=== PATIENT | male | born 1980 | race Caucasian/White ===

== ENCOUNTER 2017-05-18 07:27 | Day surgery (SDC) | payer MEDICAID ==
[~2017-05-18] VITALS: Ht 188 cm; Wt 139.2 kg
[2017-05-18] VITALS (7 sets, daily range): BP systolic 129–168; BP diastolic 85–118
[~2017-05-18 07:27] MED LIST: CLA10T PO; DEXL60CA3 PO; HYDR1TAB PO; METH4TAB3 PO; PRED10TA PO; QUET-1 PO; ROSU20TA PO
[2017-05-18] MEDS ORDERED: normal saline 1000ml 1,000 ML IV PRN (08:00)
[2017-05-18 08:47] LABS: BASOPHILS % (AUTO) 0.5 % (0-1); EOSINOPHILS # (AUTO) 0.2 X10'3 (0-0.9); EOSINOPHILS % (AUTO) 2.7 % (0-6); HEMATOCRIT 43.5 % (42.0-52.0); HEMOGLOBIN 15.4 g/dl (14.0-17.9); LYMPHOCYTES # (AUTO) 1.3 X10'3 (1.1-4.8); LYMPHOCYTES % (AUTO) 21.7 % (21-51); MEAN CORPUSCULAR HEMOGLOBIN 31.6 PG (27.0-31.0); MEAN CORPUSCULAR HGB CONC 35.5 % (33.0-36.5); MEAN CORPUSCULAR VOLUME 89.3 FL (78-98); MEAN PLATELET VOLUME 9.4 FL (7.4-10.4); MONOCYTES # (AUTO) 0.4 X10'3 (0-0.9); NEUTROPHILS # (AUTO) 4.1 X10'3 (1.8-7.7); NEUTROPHILS % (AUTO) 68.1 % (42-75); PLATELET COUNT 239 X10'3 (140-440); RED BLOOD COUNT 4.87 X10'6 (4.70-6.10); RED CELL DISTRIBUTION WIDTH 12.6 % (11.5-14.5)
[2017-05-18] MEDS ORDERED: HYDR12.5 PO (08:47)
[2017-05-18] MEDS ORDERED: OMEP20TA23 PO (08:47)
[2017-05-18] MEDS ORDERED: NABU500T2 PO (08:47)
[2017-05-18] MEDS ORDERED: ATOR40TA PO (08:47)
[2017-05-18] MEDS ORDERED: LISI-600 PO (08:47)
[2017-05-18] MEDS ORDERED: KETO10DR3 EACHEYE (08:47)
[2017-05-18] MEDS ORDERED: HYDR-565 PO (08:47)
[2017-05-18] MEDS ORDERED: LIDOcaine 1%/PF (10mg/ml) 5ml vial ONE (09:03)
[2017-05-18] MEDS ORDERED: heparin sodium, porcine/PF 100unit/ml 5ML syringe ONE (09:04)
[2017-05-18] MEDS ORDERED: midazolam 2 mg/2 ml injection ONE ×3 (10:00→10:39)
[2017-05-18] MEDS ORDERED: fentaNYL/PF 50MCG/1 ML 2ML syringe ONE ×3 (10:01→10:39)
[2017-05-18] MEDS ORDERED: midazolam 2 mg/2 ml injection IV PRN (10:05)
[2017-05-18] MEDS ORDERED: fentaNYL/PF 50MCG/1 ML 2ML syringe IV PRN (10:05)
[2017-05-18] MEDS ORDERED: LIDOcaine 1%/PF (10mg/ml) 5ml vial SQ ONE (10:05)
[2017-05-18] MEDS ORDERED: heparin sodium, porcine/PF 100unit/ml 5ML syringe ICATH ONE (10:05)
[2017-05-18] MEDS ORDERED: diphenhydrAMINE 50 mg/ml inj ONE (10:45)
== END 2017-05-18 12:40 | disposition home or self-care (01) ==
LOC: SSTAY O 07:27
PROVIDERS: ATTEND Radiology Vascular & Interventional Radiology
DX: C43.21 Malignant melanoma of right ear and external auricular canal (principal); C43.4 Malignant melanoma of scalp and neck; E66.9 Obesity, unspecified; E78.5 Hyperlipidemia, unspecified; I10 Essential (primary) hypertension; F17.210 Nicotine dependence, cigarettes, uncomplicated; F12.90 Cannabis use, unspecified, uncomplicated; G89.29 Other chronic pain; Z79.82 Long term (current) use of aspirin; Z68.39 Body mass index [BMI] 39.0-39.9, adult; Z98.890 Other specified postprocedural states; Z88.1 Allergy status to other antibiotic agents; Z79.899 Other long term (current) drug therapy
CPT/HCPCS: 36415; 36561; 76937; 77001; 85025; 99152; 99153; A6219; C1788; C1894; J1200; J1642; J2001; J2250; J3010; J7030; A4620

== ENCOUNTER 2024-05-19 15:17 | Emergency (ER) | payer MEDICAID ==
[~2024-05-19] VITALS: Ht 188 cm; Wt 135.0 kg
[~2024-05-19 15:17] MED LIST changes: +ATOR40TA PO; -DEXL60CA3 PO; +HYDR-4353 PO; +HYDR12.5 PO; -HYDR1TAB PO; +KETO10DR3 EACHEYE; +LISI20TA28 PO; -METH4TAB3 PO; +NABU-139 PO; +OMEP20TA23 PO; -PRED10TA PO; -ROSU20TA PO
[2024-05-19] MEDS ORDERED: PRED10TA23 PO (15:58)
[2024-05-19] MEDS: triamcinolone acetonide 40mg/ml inj IM ONE (16:40)
[2024-05-19 16:48] VITALS: BP 138/84; PULSE 86; RESP 18; TEMP 98.4; O2SAT 98
== END 2024-05-19 16:49 | disposition home or self-care (01) ==
LOC: ER 15:18
DX: L23.7 Allergic contact dermatitis due to plants, except food (principal); G89.29 Other chronic pain; M54.9 Dorsalgia, unspecified; F12.90 Cannabis use, unspecified, uncomplicated; Z88.1 Allergy status to other antibiotic agents; Z79.899 Other long term (current) drug therapy
CPT/HCPCS: 96372; 99283; J3301